=== PATIENT | male | born 1990 | race Caucasian/White ===

== ENCOUNTER → 2018-01-03 07:59 | Outpatient (CLI) | payer OTHER, SELFPAY ==
--- NOTE | 2018-01-03 08:02 | MR_ITS ---
MR knee LT wo con HISTORY: ITS.REASON: PAIN IN LEFT KNEE, SWELLING OF JOINT, prior injury ORDERING PHYSICIAN: Gary Monroe MD PATIENT AGE: 27 years Comparison: 12/02/2017 TECHNIQUE: Standard multiplanar multiecho sequences are performed without contrast. FINDINGS: The cruciate ligaments, collateral ligaments, patellar tendon, and quadriceps tendon appear intact. There is disruption of the subcutaneous fat in the suprapatellar region with a fluid collection in the suprapatellar area at the area of fat disruption and dissecting inferiorly superficial to the patella and quadriceps muscle measuring 3.4 x 2.2 x 3.5 cm extending from the subcutaneous region superficially to the deep subcutaneous region along the anterior surface of the quadriceps tendon consistent with posttraumatic seroma. The quadriceps tendon does appear intact. No evidence of meniscal tear. No bone bruise apparent. The patellar cartilage is well preserved. There is a small knee joint effusion. No fracture or dislocation. IMPRESSION: 1. No internal derangement of the knee. 2. Posttraumatic seroma within the subcutaneous tissues of the suprapatellar region 3. Small knee joint effusion
== END ==
PROVIDERS: PCP Family Medicine; Visit Provider Family Medicine
DX: M25.562 Pain in left knee (principal); M25.462 Effusion, left knee
CPT/HCPCS: 73721

== ENCOUNTER → 2018-02-03 08:43 | Outpatient (CLI) | payer OTHER, SELFPAY ==
--- NOTE | 2018-02-03 08:53 | XR_ITS ---
XR knee LT 4V HISTORY: Left knee pain ITS.REASON: four views weightbearing ORDERING PHYSICIAN: Dylon Frye MD PATIENT AGE: 27 years COMPARISON: None FINDINGS: There is patella lizzie. No patellar subluxation evident on the sunrise view. No other significant anomalies are evident aside from a small bone island in the distal femur medially. IMPRESSION: Patella lizzie otherwise negative left knee
== END ==
PROVIDERS: PCP Family Medicine; Visit Provider Orthopaedic Surgery
DX: M25.562 Pain in left knee (principal)
CPT/HCPCS: 73564

== ENCOUNTER → 2020-01-24 09:40 | Outpatient (CLI) | payer OTHER, SELFPAY ==
[2020-01-24 19:47] LABS: Covid-19 Nasal PCR Sendout Lex NOT DETECTED
== END ==
PROVIDERS: PCP Family Medicine; Visit Provider Family Medicine
DX: Z03.818 Encounter for observation for suspected exposure to other biological agents ruled out (principal)
CPT/HCPCS: U0004

== ENCOUNTER 2020-03-04 09:57 | Emergency (ER) | payer OTHER, SELFPAY ==
[2020-03-04 10:26] VITALS: BP 151/88; PULSE 84; RESP 19; TEMP 36.6; O2SAT 98; BMI 36.5
--- NOTE | 2020-03-04 10:35 | HMH.EDUTC ---
[facility] [place] Clinical Impression: Exposure to COVID-19 virus Disposition: Home, Self-Care Condition on Discharge: Good Instructions: Preventing the Spread of Coronavirus Discharge Instructions, How to Avoid a Cold or Flu, Common Cold Additional Instructions: *Monitor Temp, Over the counter Motrin or Tylenol as directed/as needed Tylenol every 4 hours and Motrin every 6 hours (as long as your family doctor has told you that you can take it) for fever or pain. and straight to ER if unable to lower temp less than 101.0 after medication given *Warm salt water gargles may help to soothe the throat *Throat Lozenges *Warm fluids like tea with honey may help to soothe the throat *Sleep elevated *Humidifier/Vaporizer *Flonase 2 sprays in each nostril daily but be aware that it may take 2-3 days before you notice improvement *Bromfed may cause drowsiness. Know how it effects you (your child) before driving, caring for small child, or sending your child to school. Not other antihistamines/allergy medications while taking bromfed Follow up IMMEDIATELY for new or worsening symptoms or no Noticeable improvement over the next 48-72 hours. 911 for difficulty breathing or swallowing You were tested for today for COVID19 your test result should be back in the next 24-48 hours, you may call to the [facility] to see if your test results are back in the next 48 hours [phone] [facility] hours are 9am-9pm You was given a handout with instructions for Self Quarantine and Self isolation for while you wait on test results and what to do if they are positive If you are positive the Health Dept will be contacting you also Prescriptions: Brompheniramine/Pseudoephed/Dm [Bromfed Dm Cough Syrup] 5 - 10 ml PO Q46H PRN #150 ml PRN Reason: Cough Prescription Printed Fluticasone Propionate [Flonase 50mcg nasal spray 16gm] 1 spr NS DAILY #1 bottle Prescription Printed Referrals: Gary Monroe MD [Primary Care Provider] - As needed Time of Disposition: 10:39 Medical Decision Making - Jaspreet Inquiry Pt receiving controlled substance: No Jaspreet was queried for this patient: No Vital Signs: 03/04/20 10:26 Temperature 97.8 F Temperature Source Oral Pulse Rate [Left] 84 Respiratory Rate 19 Blood Pressure [Right Arm] 151/88 H Blood Pressure Mean [Right Arm] 109 Blood Pressure Source [Right Arm] Automatic Cuff Blood Pressure Position [Right Arm] Sitting 02 Sat by Pulse Oximetry 98 Oxygen Delivery Method Room Air Orders (Tests/Meds): ORDERS Category Date Time Status Covid-19 Nasal PCR Sendout [facility] 03/04/20 10:03 Ordered [facility] [place] - General Stated complaint: Cough, weakness, body aches Time Seen by Provider: 03/04/20 10:35 Mode of Arrival: Ambulatory Source of Information: Patient Limitations: No Limitations Description of Symptoms (Recalled from Triage Doc. by RN): Covid test symptomatic-loss of taste and smell, cough, runny nose HEENT Symptoms (Recalled from RN notes): Yes Resp Symptoms (Recalled from RN notes): Yes Skin Symptoms (Recalled from RN notes): No MS Symptoms (Recalled from RN notes): No Functional Status (Recalled from RN notes): wnl - History of Present Illness Provider Complaint: Patient states that he has been having cough, runny nose and recently loss his sense of taste and smell State that he was recently around several people that has sense tested positive for COVID - Related Data Previous Rx's Medication Instructions Recorded Brompheniramine/Pseudoephed/Dm 5 - 10 ml PO Q46H PRN #150 ml 03/04/20 [Bromfed Dm Cough Syrup] Fluticasone Propionate [Flonase 1 spr NS DAILY #1 bottle 03/04/20 50mcg nasal spray 16gm] Allergies Allergy/AdvReac Type Severity Reaction Status Date / Time Penicillins [PENICILLINS] Allergy Unknown Verified 03/04/20 10:32 - Worker's Comp Is this a Worker's Comp case?: No Is this an H Worker's Comp?: No Is this a [place] Worker's Comp?: No [facility] History
[2020-03-04 11:01] VITALS: BP 151/88; PULSE 84; RESP 19; TEMP 36.6; O2SAT 98
[2020-03-05 12:40] LABS: Covid-19 Nasal PCR Sendout Lex Positive
== END 2020-03-04 11:01 | disposition home or self-care (01) ==
PROVIDERS: Emergency Provider Nurse Practitioner; PCP Family Medicine
DX: U07.1 COVID-19 (principal)
CPT/HCPCS: 99201; U0004

== ENCOUNTER → 2020-05-22 11:03 | Outpatient (CLI) | payer OTHER, SELFPAY ==
[2020-05-22 12:47] LABS: Coronavirus 19 IgG Antibody Positive (Negative); Coronavirus 19 IgM Antibody Negative (Negative)
== END ==
PROVIDERS: Visit Provider Urology
DX: Z01.818 Encounter for other preprocedural examination (principal); Z20.822 Contact with and (suspected) exposure to COVID-19; Z30.2 Encounter for sterilization
CPT/HCPCS: 36415; 86328

== ENCOUNTER 2020-05-24 07:25 | Day surgery (SDC) | payer OTHER, SELFPAY ==
[2020-05-21 10:40] VITALS: BMI 36.5
[2020-05-24 07:39] VITALS: BP 139/98; PULSE 90; RESP 18; TEMP 36.7; O2SAT 98
--- NOTE | 2020-05-24 08:56 | P.PN_ITS ---
[facility] [place] Anesthesia Checklist - Structural Data Admitted From: Home Planned Operative Procedure/s: vasectomy Consent for Planned Operative Procedure(s) Verified: Yes - Additional verifications Anesthesia Reactions: No Hx Blood Transfusions: No Blood Transfusion Reaction: No - Airway Assessment C-Spine Mobility Assessed: Yes TMJ Mobility Assessed: Yes Dentition: Good Dentition - Neurological Assessment Level of Consciousness: Awake, Alert, Appropriate - Anesthesia Plan Anesthesia Risk discussed: Yes Anesthesia Plan: Verified ASA Class: II Anesthesia Type: Local & MAC [facility] [place] History I have reviewed the patient's past medical history: Yes Medical History: Denies:: Cancer, Diabetes Mellitus Type 1, Diabetes Mellitus Type 2, Internal Pacemaker, MRSA, Seizures *Have you ever received a pneumonia vaccine?: No *Have you received a flu vaccine this season?: No Other Medical History: Denies: Blood Transfusion Reaction Anesthesia experience/problems:: none Other Surgeries: Yes: No Previous Surgery. No: Pacemaker Amputation: No Fractures: No - *Social History Last grade of school completed: 9th or 10th Smoking Status: Never smoker Alcohol Intake: current Alcohol Intake Frequency:: 3 or more drinks per day Substance Use Type: denies use *Occupational Status:: employed Housing: house Household Members: family *Travel in the last 8 weeks: None Family Hx:: Cancer, Coronary Artery Disease, Diabetes, Hypertension
[2020-05-24 10:15] VITALS: BP 133/85; PULSE 94; RESP 18; TEMP 36.6; O2SAT 97
[2020-05-24 10:30] VITALS: BP 135/86; PULSE 91; RESP 18; TEMP 36.6; O2SAT 97
--- NOTE | 2020-05-24 10:30 | P.OP_ITS ---
Date of procedure: 05/24/20 Pre-op Diagnosis:: Sterilization Post-op Diagnosis:: Sterilization Procedure performed:: Vasectomy Surgeon:: Salas Shetty MD CIGARETTE PACKER:: Gonzalo Miller Anesthesia: MAC Estimated blood loss (mL): 2 Clinical Note:: 30-year-old white male presents today for vasectomy. Previous consultation has been performed in the office and we went over the operative procedure, complications and postoperative course in the preoperative room this morning. Operative findings:: Scrotal exam reveals normal size and shape testicles. No evidence of scrotal or testicular masses. Operative note:: Patient taken to the operating room after informed consent was obtained. He was placed on the operating table in the supine position and monitored anesthesia care administered. He was prepped and draped in the standard surgical fashion. Scrotal and testicular examination were within normal limits. The left vas was grasped and brought up to the midline raphae. Local anesthetic placed under the skin in the midline raphae and around the vas. Incision was then made in the midline raphae and the vas was grasped with a tenaculum and brought up through the incision. The basal sheath was then incised and the vas proper was brought through the surrounding tissue. 1 Hemoclip was placed distally and 2 proximally. A 1 cm segment was excised. Hemostasis achieved of the surrounding tissue and the vas was dropped back into the left hemiscrotum. The right vas was then grasped and brought up through the same midline incision. Local anesthetic was placed around the right vas and the identical procedure was performed as on the left side. Hemostasis achieved and the vas dropped back int o the hemiscrotum. A little bleeding was encountered and a [id number] was placed on the bleeding tissue and start back into the hemiscrotum. The skin was then closed with a horizontal mattress 2-0 chromic. Compression dressing and jockstrap applied. 2 cc of blood loss. Patient tolerated procedure well no complications. Condition: stable Disposition: same day Specimens:: Vas segments were removed but not sent to pathology Complications:: None
[2020-05-24 10:45] VITALS: BP 138/99; PULSE 85; RESP 18; TEMP 36.6; O2SAT 100
== END 2020-05-24 10:45 | disposition home or self-care (01) ==
LOC: OR 07:27
PROVIDERS: PCP Family Medicine; Visit Provider Urology
PROC: (CPT 55250; principal; 2020-05-24 09:00)
DX: Z30.2 Encounter for sterilization (principal); Z88.0 Allergy status to penicillin
CPT/HCPCS: 55250

== ENCOUNTER 2021-07-16 06:47 | Emergency (ER) | payer OTHER, SELFPAY ==
[2021-07-16 06:48] VITALS: BP 139/107; PULSE 102; RESP 18; TEMP 37.2; O2SAT 99; BMI 34.9
--- NOTE | 2021-07-16 07:29 | PC.NURSE ---
wound covered with a non-adhearent pad and tegaderm
--- NOTE | 2021-07-16 07:39 | HMH.EDWNDL ---
ED Disposition Clinical Impression: Laceration of forearm Qualifiers: Encounter type: initial encounter Laterality: left Qualified Code(s): S51.812A - Laceration without foreign body of left forearm, initial encounter Disposition: Home, Self-Care Condition on Discharge: Good Instructions: DI for Laceration Repair Additional Instructions: sutures out 10 days and recheck if needed Referrals: Gary Monroe MD [Primary Care Provider] - - Critical Care Critical Care Time: No Attestation: On 07/16/21, the high probability of a clinically significant, sudden or life threatening deterioration of the following system(s) required my full and direct attention, intervention and personal management. The time I documented below is in addition to time spent performing reported procedures but includes the following listed in this critical care notation. Medical Decision Making - Medical Records Medical records reviewed: Yes: I reviewed the patient's medical records. - Jaspreet Inquiry Pt receiving controlled substance: No Vital Signs: 07/16/21 06:48 Temperature 99.0 F Temperature Source Oral Pulse Rate [Right] 102 H Respiratory Rate 18 Blood Pressure [Right Arm] 139/107 H Blood Pressure Mean [Right Arm] 117 Blood Pressure Source [Right Arm] Automatic Cuff 02 Sat by Pulse Oximetry 99 Oxygen Delivery Method Room Air Orders (Tests/Meds): ED MEDICATIONS Generic Name Dose Route Start Last Admin Trade Name Freq PRN Reason Stop Dose Admin Lidocaine HCl 10 ml 07/16/21 07:38 Lidocaine 1% 10ml Mdv SQ 07/16/21 07:39 ONCE ONE Discontinued Medications Generic Name Dose Route Start Last Admin Trade Name Freq PRN Reason Stop Dose Admin Tetanus/Reduced Diphtheria/Acell Pertussis 0.5 ml 07/16/21 07:07 07/16/21 07:26 Tet/Diphth/Pert-Adult 0.5ml Syringe IM 07/16/21 07:08 0.5 ml .ONCE ONE Administration Medical Decision Narrative: workman comp form completed after repair Wound/Laceration HPI - General Chief Complaint: Wound/Laceration Stated Complaint: WC left arm cut at work 0615 Time Seen by Provider: 07/16/21 07:00 Mode of Arrival: Family Vehicle Source of Information: Patient, Medical Record Limitations: No Limitations Description of Symptoms (Recalled from ER Triage Doc. by RN): Ptc/o L forearm small lac that occured @ work @ 0630 this am. He works @ [employer] and cut his arm when he accidently hit it on a piece of metal. Unsure when he has had a tetanus last. - History of Present Illness HPI narrative: lac lt forarm at work this am Onset (ago): hour(s) Extremity Location: Left: forearm Place: work Patient tetanus UTD: No Context: accidental Associated symptoms: none - Related Data Home Medications Medication Instructions Recorded Confirmed ascorbic acid (vitamin C) 500 mg 1 tab PO DAILY 04/16/20 06/11/20 capsule biotin 5,000 mcg sublingual tablet 5,000 mcg SUBLINGUAL DAILY 04/16/20 06/11/20 cholecalciferol (vitamin D3) 125 125 mcg PO DAILY 04/16/20 06/11/20 mcg (5,000 unit) capsule loratadine 10 mg disintegrating 10 mg PO DAILY 04/16/20 06/11/20 tablet mecobalamin (vitamin B12) 1,000 1,000 mcg SUBLINGUAL DAILY 04/16/20 06/11/20 mcg disintegrating tablet,sublingual Previous Rx's Medication Instructions Recorded Hydrocod/Acet 5/325 mg [[place] 1 tab PO Q6HP PRN #7 tab 05/24/20 5/325mg tablet] Allergies Allergy/AdvReac Type Severity Reaction Status Date / Time Penicillins [PENICILLINS] Allergy Unknown Verified 06/11/20 08:59 [facility] History - Hepatitis A Screen Drug use history?: No High risk sexual behaviors?: No History of sexually transmitted infection?: No Currently employed?: No Childcare worker?: No Do you have indoor plumbing?: Yes Do you have electricity?: Yes Attestation statement:: This patient has been screened for Hepatitis A risk factors. I have reviewed the patient's past medical history: Yes Medical
[2021-07-16 07:52] VITALS: BP 143/90; PULSE 87; RESP 18; TEMP 37.2; O2SAT 99
== END 2021-07-16 07:52 | disposition home or self-care (01) ==
PROVIDERS: Emergency Provider Emergency Medicine; PCP Family Medicine
DX: S51.812A Laceration without foreign body of left forearm, initial encounter (principal); Z23 Encounter for immunization; W26.8XXA Contact with other sharp object(s), not elsewhere classified, initial encounter; Y92.63 Factory as the place of occurrence of the external cause; Y99.0 Civilian activity done for income or pay
CPT/HCPCS: 12002; 90715; 99282

== ENCOUNTER 2021-08-20 09:12 | Emergency (ER) | payer MEDICAID, SELFPAY ==
--- NOTE | 2021-08-20 09:31 | HMH.EDUTC ---
[facility] [place] Dis[place] Clinical Impression: Bronchitis Sinusitis Qualifiers: Sinusitis location: unspecified location Chronicity: acute Recurrence: non-recurrent Qualified Code(s): J01.90 - Acute sinusitis, unspecified Disposition: Home, Self-Care Condition on Discharge: Good Instructions: DI for Sinusitis, DI for Acute Bronchitis Additional Instructions: Drink plenty of fluids. Take tylenol or ibuprofen for pain or fever. Take the medications as directed. Follow up with your regular doctor. GO TO THE ER FOR ANY WORSENING SYMPTOMS Prescriptions: Benzonatate [Benzonatate 100mg cap] 100 mg PO TIDP PRN #30 cap PRN Reason: Cough Transmission Status: Received by [email or web address] methylPREDNISolone [Medrol] 4 mg PO DIRECTED 6 Days #21 packet Transmission Status: Received by [email or web address] Azithromycin [Z-Mikhail 250mg Tab*] 250 mg PO UD DOSE PK #6 tab Transmission Status: Received by [facility] Cetirizine HCl [Zyrtec] 10 mg PO DAILY 30 Days #30 cap Transmission Status: Received by [facility] Referrals: Al Cantu MD [Primary Care Provider] - Medical Decision Making - Medical Records Medical records reviewed: No: I reviewed the patient's medical records. - Jaspreet Inquiry Pt receiving controlled substance: No Vital Signs: 08/20/21 09:35 08/20/21 09:44 Temperature 99.0 F 99.0 F Temperature Source Oral Pulse Rate 96 H Pulse Rate [Left Radial] 96 H Respiratory Rate 19 19 Blood Pressure 142/99 H Blood Pressure [Right Arm] 142/99 H Blood Pressure Mean [Right Arm] 113 02 Sat by Pulse Oximetry 98 [facility] [place] HPI - General Stated complaint: coughing and congestion Time Seen by Provider: 08/20/21 09:31 - History of Present Illness Provider Complaint: He states that for the past 1 week he has had worsening sinus and chest congestion. He usually get a sinus infection and bronchitis every spring and that is what he feels like is happening now. - Related Data Home Medications Medication Instructions Recorded Confirmed ascorbic acid (vitamin C) 500 mg 1 tab PO DAILY 04/16/20 06/11/20 capsule biotin 5,000 mcg sublingual tablet 5,000 mcg SUBLINGUAL DAILY 04/16/20 06/11/20 cholecalciferol (vitamin D3) 125 125 mcg PO DAILY 04/16/20 06/11/20 mcg (5,000 unit) capsule loratadine 10 mg disintegrating 10 mg PO DAILY 04/16/20 06/11/20 tablet mecobalamin (vitamin B12) 1,000 1,000 mcg SUBLINGUAL DAILY 04/16/20 06/11/20 mcg disintegrating tablet,sublingual Previous Rx's Medication Instructions Recorded Hydrocod/Acet 5/325 mg [[place] 1 tab PO Q6HP PRN #7 tab 05/24/20 5/325mg tablet] Azithromycin [Z-Mikhail 250mg Tab*] 250 mg PO UD DOSE PK #6 tab 08/20/21 Benzonatate [Benzonatate 100mg 100 mg PO TIDP PRN #30 cap 08/20/21 cap] Cetirizine HCl [Zyrtec] 10 mg PO DAILY 30 Days #30 cap 08/20/21 methylPREDNISolone [Medrol] 4 mg PO DIRECTED 6 Days #21 08/20/21 packet Allergies Allergy/AdvReac Type Severity Reaction Status Date / Time Penicillins [PENICILLINS] Allergy Unknown Verified 08/20/21 09:37 [facility] History - Hepatitis A Screen Attestation statement:: This patient has been screened for Hepatitis A risk factors. I have reviewed the patient's past medical history: Yes Medical History: Denies:: Cancer, Diabetes Mellitus Type 1, Diabetes Mellitus Type 2, Internal Pacemaker, MRSA, Seizures Other Medical History: Denies: Blood Transfusion Reaction Other Surgeries: Yes: No Previous Surgery. No: Pacemaker Amputation: No Fractures: No Comment: vasectomy 05/19 - Social History Smoking Status: Never smoker Alcohol Intake: current Alcohol Intake Frequency:: a few times a week Substance Use Type: denies use Occupational Status: employed Housing: house Household Members: family Family Hx:: Cancer, Coronary Artery Disease, Diabetes, Hypertension ROS Obtained: Yes All systems reviewed & no additional complaints - Constitu
[2021-08-20 09:35] VITALS: BP 142/99; PULSE 96; RESP 19; TEMP 37.2; O2SAT 98; BMI 34.9
[2021-08-20 09:44] VITALS: BP 142/99; PULSE 96; RESP 19; TEMP 37.2
[2021-08-20 19:07] LABS: UTC Influenza A Antigen Negative (Negative); UTC Influenza B Antigen Negative (Negative)
== END 2021-08-20 09:46 | disposition home or self-care (01) ==
PROVIDERS: Emergency Provider Nurse Practitioner Family; PCP Emergency Medicine
DX: J20.9 Acute bronchitis, unspecified (principal); J01.90 Acute sinusitis, unspecified
CPT/HCPCS: 87804; 99212; G0463

== ENCOUNTER 2022-05-28 09:10 | Emergency (ER) | payer MEDICAID, SELFPAY ==
[2022-05-28 09:20] VITALS: BP 163/97; PULSE 104; RESP 20; TEMP 36.6; O2SAT 97; BMI 37.1
--- NOTE | 2022-05-28 09:34 | EXP.UTC ---
Discharge Plan Disposition Patient Disposition: Home, Self-Care Condition: Good Prescriptions Prescriptions: New pseudoephedrine HCl 30 mg tablet 30 mg PO Q6HP PRN (Reason: Congestion) Qty: 30 0RF methylprednisolone 4 mg Tablets,Dose Pack 4 mg PO DIRECTED Qty: 21 0RF azithromycin [Zithromax] 250 mg tablet 250 mg PO UD DOSE PK Qty: 6 0RF Rx Instructions: Take two (2) tablets today, then one (1) tablet days #2 thru #5 No Action loratadine [Allergy Relief (loratadine)] 10 mg tablet,disintegrating 10 mg PO DAILY biotin 5,000 mcg tablet, sublingual 5,000 mcg SUBLINGUAL DAILY cholecalciferol (vitamin D3) 125 mcg (5,000 unit) capsule 125 mcg PO DAILY mecobalamin (vitamin B12) 1,000 mcg tablet,disintegrating 1,000 mcg SUBLINGUAL DAILY Rx Instructions: place tablet under tongue and allow to dissolve for at least30 secs before swallowing ascorbic acid (vitamin C) 500 mg capsule 1 tab PO DAILY hydrocodone-acetaminophen 1 TAB tablet 1 tab PO Q6HP PRN (Reason: Moderate To Severe Pain) Qty: 7 0RF cetirizine 10 MG capsule 10 mg PO DAILY 30 Days Qty: 30 5RF Referrals Follow up/Referrals: Provider,Referral, MD [Primary Care Provider] - See instructions Activity Restrictions/Add. Instructions Additional Instructions/Restrictions: Drink plenty of fluids. Take tylenol or ibuprofen for pain or fever. Take the medications as directed. Follow up with your regular doctor. GO TO THE ER FOR ANY WORSENING SYMPTOMS Clinical Impressions Clinical Impression: Otitis media, Sinusitis Stand Alone Forms Stand Alone Forms: Work/School Release Instructions Patient Instructions: Sinusitis, Middle Ear Infection Discharge ED Provider: Andrey Duong [facility] [place] General Stated complaint: RT ear pain Mode of Arrival: Ambulatory Source of Information: Patient Limitations: No Limitations Time Seen by Provider: 05/28/22 09:34 Description of Symptoms (Recalled from Triage Doc. by RN): right ear pain, dizzy HEENT Symptoms (Recalled from RN notes): Yes Resp Symptoms (Recalled from RN notes): No Skin Symptoms (Recalled from RN notes): No MS Symptoms (Recalled from RN notes): No Functional Status (Recalled from RN notes): n/a History of Present Illness Provider Complaint: He states that for the past 3 days he has had worsening bilateral ear pain. Related Data Home Medications Medication Instructions Recorded Confirmed ascorbic acid (vitamin C) 500 mg 1 tab PO DAILY Supplement 04/16/20 06/11/20 capsule biotin 5,000 mcg sublingual tablet 5,000 mcg sublingual DAILY 04/16/20 06/11/20 Supplement cholecalciferol (vitamin D3) 125 125 mcg PO DAILY Supplement 04/16/20 06/11/20 mcg (5,000 unit) capsule loratadine 10 mg disintegrating 10 mg PO DAILY allergies 04/16/20 06/11/20 tablet (Allergy Relief (loratadine)) mecobalamin (vitamin B12) 1,000 1,000 mcg sublingual DAILY 04/16/20 06/11/20 mcg disintegrating Supplement tablet,sublingual Previous Rx's Medication Instructions Recorded hydrocodone 5 mg-acetaminophen 325 1 tab PO Q6HP PRN Moderate To 05/24/20 mg tablet Severe Pain #7 tabs cetirizine 10 mg capsule 10 mg PO DAILY 30 days #30 caps 08/20/21 azithromycin 250 mg tablet 250 mg PO UD DOSE PK #6 tabs 05/28/22 (Zithromax) methylprednisolone 4 mg tablets in 4 mg PO DIRECTED #21 tabs 05/28/22 a dose pack pseudoephedrine HCl 30 mg tablet 30 mg PO Q6HP PRN Congestion #30 05/28/22 tabs Allergies Allergy/AdvReac Type Severity Reaction Status Date / Time Penicillins [PENICILLINS] Allergy Unknown Verified 05/28/22 09:29 Worker's Comp Is this a Worker's Comp case?: No [facility] Disclaimer: The information contained in this section may have been updated after the patient was seen, as this information can be updated by other users. Social History Smoking Status: Never smok
[2022-05-28 10:16] VITALS: BP 163/97; PULSE 104; RESP 20; TEMP 36.6; O2SAT 97
== END 2022-05-28 10:16 | disposition home or self-care (01) ==
PROVIDERS: Emergency Provider Nurse Practitioner Family
DX: H66.90 Otitis media, unspecified, unspecified ear (principal); J32.9 Chronic sinusitis, unspecified
CPT/HCPCS: 99212; 99213; G0463

== ENCOUNTER 2023-01-23 09:02 | Emergency (ER) | payer OTHER, SELFPAY ==
[2023-01-23 09:02] VITALS: BP 139/86; PULSE 112; RESP 18; TEMP 37; O2SAT 97; BMI 36.3
--- NOTE | 2023-01-23 09:37 | EXP.UTC ---
Discharge Plan Disposition Patient Disposition: Home, Self-Care Condition: Good Prescriptions Prescriptions: New clindamycin HCl 300 mg capsule 300 mg PO TID 10 Days Qty: 30 0RF No Action loratadine [Allergy Relief (loratadine)] 10 mg tablet,disintegrating 10 mg PO DAILY biotin 5,000 mcg tablet, sublingual 5,000 mcg SUBLINGUAL DAILY cholecalciferol (vitamin D3) 125 mcg (5,000 unit) capsule 125 mcg PO DAILY mecobalamin (vitamin B12) 1,000 mcg tablet,disintegrating 1,000 mcg SUBLINGUAL DAILY Rx Instructions: place tablet under tongue and allow to dissolve for at least30 secs before swallowing ascorbic acid (vitamin C) 500 mg capsule 1 tab PO DAILY cetirizine 10 MG capsule 10 mg PO DAILY 30 Days Qty: 30 5RF Referrals Follow up/Referrals: Adelina Rollins MD [Primary Care Provider] - See instructions Activity Restrictions/Add. Instructions Additional Instructions/Restrictions: call dentist wednesday for appointment Clinical Impressions Clinical Impression: Dental abscess Instructions Patient Instructions: Tooth Abscess [facility] [facility] [place] H[place] General Stated complaint: sore throat, swollen gums Mode of Arrival: Ambulatory Source of Information: Patient Limitations: No Limitations Time Seen by Provider: 01/23/23 09:37 Description of Symptoms (Recalled from Triage Doc. by RN): Gums are swollen, throat hurts, and nausea HEENT Symptoms (Recalled from RN notes): Yes Resp Symptoms (Recalled from RN notes): No Skin Symptoms (Recalled from RN notes): No MS Symptoms (Recalled from RN notes): No Functional Status (Recalled from RN notes): n/a History of Present Illness Provider Complaint: 35 yr old male presents for swollen sore gum on upper top, sore throat and nausea Related Data Home Medications Medication Instructions Recorded Confirmed ascorbic acid (vitamin C) 500 mg 1 tab PO DAILY Supplement 04/16/20 06/11/20 capsule biotin 5,000 mcg sublingual tablet 5,000 mcg sublingual DAILY 04/16/20 06/11/20 Supplement cholecalciferol (vitamin D3) 125 125 mcg PO DAILY Supplement 04/16/20 06/11/20 mcg (5,000 unit) capsule loratadine 10 mg disintegrating 10 mg PO DAILY allergies 04/16/20 06/11/20 tablet (Allergy Relief (loratadine)) mecobalamin (vitamin B12) 1,000 1,000 mcg sublingual DAILY 04/16/20 06/11/20 mcg disintegrating Supplement tablet,sublingual Previous Rx's Medication Instructions Recorded cetirizine 10 mg capsule 10 mg PO DAILY 30 days #30 caps 08/20/21 clindamycin HCl 300 mg capsule 300 mg PO TID 10 days #30 caps 01/23/23 Allergies Allergy/AdvReac Type Severity Reaction Status Date / Time Penicillins [PENICILLINS] Allergy Unknown Verified 01/23/23 09:34 Worker's Comp Is this a Worker's Comp case?: No [facility] Disclaimer: The information contained in this section may have been updated after the patient was seen, as this information can be updated by other users. Social History , SALES ENGINEER) Smoking Status: Never smoker second hand exposure: Yes alcohol intake: current substance use type: denies use current occupational status: employed Travel in the last 8 weeks: None household members: family housing: house current occupation: journeyman pipe welder current occupational exposures/hazards: Yes caffeine: Yes ROS Obtained: Yes All systems reviewed & no additional complaints except as documented Constitutional Constitutional: Reports system reviewed and no additional complaints, except as documented and Reports as per HPI Eyes Eyes: Reports system reviewed and no additional complaints, except as documented ENT Ears, Nose, Mouth, and Throat: Reports system reviewed and no additional complaints, except as documented, Reports as per HPI, Reports dental pain and Reports sore throat Cardiovascular Cardiovascular: Reports system reviewed and n
[2023-01-23 09:51] LABS: UTC Strep Screen (Rapid) Negative (Negative)
[2023-01-23 09:57] VITALS: BP 139/86; PULSE 112; RESP 18; TEMP 37; O2SAT 97
== END 2023-01-23 09:57 | disposition home or self-care (01) ==
PROVIDERS: Emergency Provider Nurse Practitioner Family; PCP Family Medicine
DX: K04.7 Periapical abscess without sinus (principal); R11.0 Nausea
CPT/HCPCS: 87880; 99212; 99214; G0463

== ENCOUNTER 2023-03-03 13:09 | Emergency (ER) | payer OTHER, SELFPAY ==
[2023-03-03 13:50] VITALS: BP 174/90; PULSE 92; RESP 18; TEMP 36.7; O2SAT 98; BMI 33.4
--- NOTE | 2023-03-03 13:58 | EXP.UTC ---
Discharge Plan Disposition Patient Disposition: Home, Self-Care Condition: Good Prescriptions Prescriptions: New azithromycin [Zithromax] 250 mg tablet 250 mg PO UD DOSE PK Qty: 6 0RF Rx Instructions: Take two (2) tablets today, then one (1) tablet days #2 thru #5 methylprednisolone 4 mg Tablets,Dose Pack 4 mg PO DIRECTED Qty: 21 0RF [id number] [Bromfed DM] 2-30-10 mg/5 mL Syrup 5 ml PO Q6H PRN (Reason: Cough) Qty: 240 0RF guaifenesin [Mucinex] 600 mg tablet extended release 12hr 600 - 1,200 mg PO BIDP PRN (Reason: Congestion) Qty: 30 0RF No Action loratadine [Allergy Relief (loratadine)] 10 mg tablet,disintegrating 10 mg PO DAILY biotin 5,000 mcg tablet, sublingual 5,000 mcg SUBLINGUAL DAILY cholecalciferol (vitamin D3) 125 mcg (5,000 unit) capsule 125 mcg PO DAILY mecobalamin (vitamin B12) 1,000 mcg tablet,disintegrating 1,000 mcg SUBLINGUAL DAILY Rx Instructions: place tablet under tongue and allow to dissolve for at least30 secs before swallowing ascorbic acid (vitamin C) 500 mg capsule 1 tab PO DAILY cetirizine 10 MG capsule 10 mg PO DAILY 30 Days Qty: 30 5RF Referrals Follow up/Referrals: Provider,Referral, MD [Primary Care Provider] - See instructions Activity Restrictions/Add. Instructions Additional Instructions/Restrictions: Drink plenty of fluids. Take tylenol or ibuprofen for pain or fever. Take the medications as directed. Follow up with your regular doctor. GO TO THE ER FOR ANY WORSENING SYMPTOMS Clinical Impressions Clinical Impression: Sinusitis, Acute viral syndrome Stand Alone Forms Stand Alone Forms: Work/School Release Instructions Patient Instructions: Sinusitis, DI for Sinusitis, Coronavirus Disease 2019, Preventing the Spread of Coronavirus Discharge Instructions Discharge ED Provider: Andrey Duong [facility] [place] HPI General Stated complaint: congestion, losing taste, runny nose, SOA Time Seen by Provider: 03/03/23 13:58 History of Present Illness Provider Complaint: He states that for the past 2 days he has had worsening sinus congestion, sore throat, nonproductive cough, fever/chills/body aches. Since this morning he has not been able to taste anything. He denies shortness of breath. Related Data Home Medications Medication Instructions Recorded Confirmed ascorbic acid (vitamin C) 500 mg 1 tab PO DAILY Supplement 04/16/20 06/11/20 capsule biotin 5,000 mcg sublingual tablet 5,000 mcg sublingual DAILY 04/16/20 06/11/20 Supplement cholecalciferol (vitamin D3) 125 125 mcg PO DAILY Supplement 04/16/20 06/11/20 mcg (5,000 unit) capsule loratadine 10 mg disintegrating 10 mg PO DAILY allergies 04/16/20 06/11/20 tablet (Allergy Relief (loratadine)) mecobalamin (vitamin B12) 1,000 1,000 mcg sublingual DAILY 04/16/20 06/11/20 mcg disintegrating Supplement tablet,sublingual Previous Rx's Medication Instructions Recorded cetirizine 10 mg capsule 10 mg PO DAILY 30 days #30 caps 08/20/21 azithromycin 250 mg tablet 250 mg PO UD DOSE PK #6 tabs 03/03/23 (Zithromax) [id number] 5 ml PO Q6H PRN Cough #240 mL 03/03/23 2 mg-30 mg-10 mg/5 mL oral syrup (Bromfed DM) guaifenesin 600 mg tablet, 600 - 1,200 mg PO BIDP PRN 03/03/23 extended release 12 hr (Mucinex) Congestion #30 tabs methylprednisolone 4 mg tablets in 4 mg PO DIRECTED #21 tabs 03/03/23 a dose pack Allergies Allergy/AdvReac Type Severity Reaction Status Date / Time Penicillins [PENICILLINS] Allergy Unknown Verified 03/03/23 14:01 [facility] Disclaimer: The information contained in this section may have been updated after the patient was seen, as this information can be updated by other users. Social History Smoking Status: Never smoker second hand exposure: Yes alcohol intake: current substance use type: de
[2023-03-03 14:32] VITALS: BP 174/90; PULSE 92; RESP 18; TEMP 36.7; O2SAT 98
== END 2023-03-03 14:31 | disposition home or self-care (01) ==
PROVIDERS: Emergency Provider Nurse Practitioner Family
DX: J01.90 Acute sinusitis, unspecified (principal); R43.9 Unspecified disturbances of smell and taste; R09.81 Nasal congestion; R07.0 Pain in throat; R05.9 Cough, unspecified; R50.9 Fever, unspecified; M79.18 Myalgia, other site; R06.02 Shortness of breath
CPT/HCPCS: 87635; 99212; 99214; G0463

== ENCOUNTER 2023-03-18 00:24 | Emergency (ER) | payer OTHER, SELFPAY ==
[2023-03-18 00:25] VITALS: BP 153/119; PULSE 102; RESP 15; TEMP 36.8; O2SAT 99; BMI 34.4
--- NOTE | 2023-03-18 00:31 | ECG_ITS ---
APPROVED REPORT Exam: Resting ECG HR:99 bpm ECG Measurements Heart Rate 99 AXES NJ 140 P 68 QRSd 105 QRS 66 QT 342 T 62 QTc 398 Conclusion SINUS RHYTHM NORMAL ECG UNCONFIRMED REPORT Electronically signed by : Gary Avery MD 03/18/2023 19:44:44
--- NOTE | 2023-03-18 00:33 | XR_ITS ---
PROCEDURE INFORMATION: Exam: XR Chest Exam date and time: 03/18/2023 12:38 AM Age: 33 years old Clinical indication: Shortness of breath; Patient HX: SOA since yesterday; Additional info: SOB TECHNIQUE: Imaging protocol: Radiologic exam of the chest. Views: 1 view. COMPARISON: No relevant prior studies available. FINDINGS: Lungs: No evidence of acute pulmonary disease or infiltrates; lung darnell appear clear. Pleural spaces: No evidence of pleural effusion, pneumothorax, or pleural thickening in the visualized pleural spaces. Heart/Mediastinum: No evidence of mediastinal widening or cardiac silhouette enlargement; the mediastinum and heart appear within normal limits for contour and size. Bones/joints: No evidence of acute osseous abnormalities within the visualized portions of the thoracic spine and ribs. Osseous structures appear appropriate for patient age. IMPRESSION: Negative study. No acute cardiopulmonary abnormalities identified.
[2023-03-18 00:42] LABS: Basophils # 0.1 K/mm3 (0-0.2); Basophils % 0.9 % (0.1-2.0); Eosinophils # 0.1 K/mm3 (0.0-0.4); Eosinophils % 1.6 % (0.1-12.0); Hematocrit 48.4 % (42.0-52.0); Hemoglobin 16.3 g/dL (14.1-18.0); Lymphocytes # 1.9 K/mm3 (0.7-4.5); Lymphocytes % 36.9 % (10-50); Mean Corpuscular HGB Conc 33.6 g/dL (31.8-35.4); Mean Corpuscular Hemoglobin 31.1 pg (27.0-31.2); Mean Corpuscular Volume 92.6 fl (80-94); Mean Platelet Volume 8.5 fl (7.4-10.4); Monocytes # 0.5 K/mm3 (0.1-1.0); Monocytes % 9.1 % (1.7-9.3); Neutrophils # 2.7 K/mm3 (1.8-7.8); Neutrophils % 51.5 % (37.0-80.0); Platelet Count 225 K/mm3 (142-424); Red Blood Count 5.23 M/mm3 (4.60-6.20); Red Cell Distribution Width 13.5 % (11.5-17.5); White Blood Count 5.2 K/mm3 (4.8-10.8)
[2023-03-18 00:45] LABS: Coronavirus 19, PCR Not Detected (NotDetected); Influenza B, PCR Not Detected (NotDetected)
--- NOTE | 2023-03-18 00:48 | HMH.EDGENADL ---
Discharge Plan Disposition Patient Disposition: Home, Self-Care Prescriptions Prescriptions: No Action loratadine [Allergy Relief (loratadine)] 10 mg tablet,disintegrating 10 mg PO DAILY biotin 5,000 mcg tablet, sublingual 5,000 mcg SUBLINGUAL DAILY cholecalciferol (vitamin D3) 125 mcg (5,000 unit) capsule 125 mcg PO DAILY mecobalamin (vitamin B12) 1,000 mcg tablet,disintegrating 1,000 mcg SUBLINGUAL DAILY Rx Instructions: place tablet under tongue and allow to dissolve for at least30 secs before swallowing ascorbic acid (vitamin C) 500 mg capsule 1 tab PO DAILY cetirizine 10 MG capsule 10 mg PO DAILY 30 Days Qty: 30 5RF azithromycin [Zithromax] 250 mg tablet 250 mg PO UD DOSE PK Qty: 6 0RF Rx Instructions: Take two (2) tablets today, then one (1) tablet days #2 thru #5 methylprednisolone 4 mg Tablets,Dose Pack 4 mg PO DIRECTED Qty: 21 0RF [id number]-[id number] [Bromfed DM] 2-30-10 mg/5 mL Syrup 5 ml PO Q6H PRN (Reason: Cough) Qty: 240 0RF guaifenesin [Mucinex] 600 mg tablet extended release 12hr 600 - 1,200 mg PO BIDP PRN (Reason: Congestion) Qty: 30 0RF Referrals Follow up/Referrals: Provider,Referral, MD [Primary Care Provider] - See instructions Activity Restrictions/Add. Instructions Additional Instructions/Restrictions: Please follow-up with your primary care provider. Please return to the emergency department if you develop any new or worsening symptoms or become concerned for your health. Clinical Impressions Clinical Impression: Exertional shortness of breath, Influenza A Discharge ED Provider: Eliu Bliss General Adult HPI General Chief complaint: Chest Pain Stated complaint: SOA, Congestion Time Seen by Provider: 03/18/23 00:27 Mode of Arrival: Ambulatory Source of Information: Patient Limitations: No Limitations Description of Symptoms (Recalled from ER Triage Doc. by RN): Pt presents with CP that started 2 days associated with SOA with exertion. DX with bad sinus infection 2 weeks ago, believes it has gone into his chest. No cardiac or PE hx. Stated he used family nebulizer today and felt better. History of Present Illness HPI narrative: 33-year-old male, previously healthy, presents with shortness of air over the last couple of days. Reports he had a recent sinus infection and thinks it may have traveled down. He denies any fever at home. He denies any productive cough. He denies any cardiac history. Notable risk factors for PE. Never smoker. Related Data Home Medications Medication Instructions Recorded Confirmed ascorbic acid (vitamin C) 500 mg 1 tab PO DAILY Supplement 04/16/20 06/11/20 capsule biotin 5,000 mcg sublingual tablet 5,000 mcg sublingual DAILY 04/16/20 06/11/20 Supplement cholecalciferol (vitamin D3) 125 125 mcg PO DAILY Supplement 04/16/20 06/11/20 mcg (5,000 unit) capsule loratadine 10 mg disintegrating 10 mg PO DAILY allergies 04/16/20 06/11/20 tablet (Allergy Relief (loratadine)) mecobalamin (vitamin B12) 1,000 1,000 mcg sublingual DAILY 04/16/20 06/11/20 mcg disintegrating Supplement tablet,sublingual Previous Rx's Medication Instructions Recorded cetirizine 10 mg capsule 10 mg PO DAILY 30 days #30 caps 08/20/21 azithromycin 250 mg tablet 250 mg PO UD DOSE PK #6 tabs 03/03/23 (Zithromax) anfokmsvtvvnojp-jxbnwgrnrazzkdm-RX 5 ml PO Q6H PRN Cough #240 mL 03/03/23 2 mg-30 mg-10 mg/5 mL oral syrup (Bromfed DM) guaifenesin 600 mg tablet, 600 - 1,200 mg PO BIDP PRN 03/03/23 extended release 12 hr (Mucinex) Congestion #30 tabs methylprednisolone 4 mg tablets in 4 mg PO DIRECTED #21 tabs 03/03/23 a dose pack Allergies Allergy/AdvReac Type Severity Reaction Status Date / Time Penicillins [PENICILLINS] Allergy Unknown Verified 03/03/23 14:01 [facility] Disclaimer: The information contained in this section may have been updated after the patient
[2023-03-18 00:52] LABS: Alanine Aminotransferase 64 U/L (12-78); Albumin Level 4.8 g/dl (3.5-5.0); Albumin/Globulin Ratio 1.4 (1.1-1.8); Alkaline Phosphatase 77 U/L (38-126); Anion Gap 13.8 mEq/L (5-15); Aspartate Amino Transferase 64 U/L (17-59); Bilirubin,Total 0.5 mg/dl (0.2-1.3); Blood Urea Nitrogen 14 mg/dl (9-20); Calcium 8.2 mg/dl (8.4-10.2); Carbon Dioxide 22 mmol/L (22.0-30.0); Chloride 105 mmol/L (98-107); Creatinine Clearance Estimated 148 mL/min (50-200); Estimated Glomerular Filt Rate 86 ml/min (>60); GFR (African American) 104 ML/MIN (>60); Globulin 3.5 g/dL (1.3-3.2); Glucose 113 mg/dl (74-100); Potassium 3.8 mmoL/L (3.5-5.1); Sodium 137 mmol/L (136-145); Total Protein,Serum 8.3 g/dl (6.3-8.2)
[2023-03-18 01:06] LABS: Troponin I < 0.01 ng/ml (0.00-0.034)
[2023-03-18 01:06] LABS: Influenza A, PCR Detected (NotDetected)
[2023-03-18 01:07] LABS: D-Dimer < 0.25 ug/mL (0.0-0.5)
[2023-03-18 01:10] LABS: T4 (Thyroxine) 7.9 ug/dl (5.53-11.0)
[2023-03-18 01:18] VITALS: BP 129/89; PULSE 84; RESP 16; TEMP 36.8; O2SAT 97
== END 2023-03-18 01:19 | disposition home or self-care (01) ==
PROVIDERS: Emergency Provider Emergency Medicine
DX: J10.1 Influenza due to other identified influenza virus with other respiratory manifestations (principal); R06.09 Other forms of dyspnea; R00.0 Tachycardia, unspecified
CPT/HCPCS: 71045; 80053; 84436; 84443; 84484; 85025; 85378; 87636; 93005; 99284

== ENCOUNTER 2023-03-20 08:26 | Emergency (ER) | payer OTHER, SELFPAY ==
[2023-03-20 08:35] VITALS: BP 108/78; PULSE 91; RESP 21; TEMP 36.6; O2SAT 99; BMI 30.7
--- NOTE | 2023-03-20 09:00 | EXP.UTC ---
Discharge Plan Disposition Patient Disposition: Home, Self-Care Condition: Good Prescriptions Prescriptions: New hydroxyzine HCl 25 mg tablet 25 mg PO QID PRN (Reason: anxiety) Qty: 40 0RF No Action loratadine 10 mg Capsule 10 mg PO DAILY Referrals Follow up/Referrals: Provider,Referral, MD [Primary Care Provider] - See instructions Activity Restrictions/Add. Instructions Additional Instructions/Restrictions: Follow up with PCP next week. Clinical Impressions Clinical Impression: Cough in adult patient, Anxiety Instructions Patient Instructions: Cough, DI for Influenza -- Adult, DI for Anxiety -- Adult Discharge ED Provider: Julissa San [facility] General Stated complaint: cough, diarrhea, flu+03/18 chest congestion Mode of Arrival: Ambulatory Source of Information: Patient Limitations: No Limitations Time Seen by Provider: 03/20/23 09:00 Description of Symptoms (Recalled from Triage Doc. by RN): PATIENT C/O COUGH AND CHEST CONGESTION X 2 DAYS. RECENTLY TESTED POSITIVE FOR FLU HEENT Symptoms (Recalled from RN notes): No Resp Symptoms (Recalled from RN notes): Yes Skin Symptoms (Recalled from RN notes): No MS Symptoms (Recalled from RN notes): No Functional Status (Recalled from RN notes): WNL History of Present Illness Provider Complaint: Pt relates that he tested positive for flu a couple days ago and has periods where he feels like he is choking and can't get his breath. He reports that he is unsure if he is having lung issues or anxiety. He reports that he went off his buspar some time ago and knows that he is having a lot of anxiety recently. Related Data Home Medications Medication Instructions Recorded Confirmed loratadine 10 mg capsule 10 mg PO DAILY 03/20/23 03/20/23 Previous Rx's Medication Instructions Recorded hydroxyzine HCl 25 mg tablet 25 mg PO QID PRN anxiety #40 tabs 03/20/23 Allergies Allergy/AdvReac Type Severity Reaction Status Date / Time Penicillins [PENICILLINS] Allergy Unknown Verified 03/03/23 14:01 Worker's Comp Is this a Worker's Comp case?: No [facility] Disclaimer: The information contained in this section may have been updated after the patient was seen, as this information can be updated by other users. Social History Smoking Status: Never smoker second hand exposure: Yes alcohol intake: current substance use type: denies use current occupational status: employed Travel in the last 8 weeks: None household members: family housing: house current occupation: journeyman pipe welder current occupational exposures/hazards: Yes caffeine: Yes ROS Obtained: Yes All systems reviewed & no additional complaints except as documented Constitutional Constitutional: Reports system reviewed and no additional complaints, except as documented and Reports malaise Eyes Eyes: Reports system reviewed and no additional complaints, except as documented ENT Ears, Nose, Mouth, and Throat: Reports system reviewed and no additional complaints, except as documented and Reports sinus pressure Cardiovascular Cardiovascular: Reports system reviewed and no additional complaints, except as documented Respiratory Respiratory: Reports system reviewed and no additional complaints, except as documented, Reports shortness of breath and Reports non-productive cough Gastrointestinal Gastrointestingal: Reports system reviewed and no additional complaints, except as documented Genitourinary Male Genitourinary: Reports system reviewed and no additional complaints, except as documented Musculoskeletal Musculoskeletal: Reports system reviewed and no additional complaints, except as documented Integumentary/Breasts Skin/Breast: Reports system reviewed and no additional complaints, except as documented Neurologic Neurologic: Reports system reviewed and no additional complaints, except as documented Endocrine Endocrine: Reports
[2023-03-20 09:20] VITALS: BP 108/78; PULSE 91; RESP 21; TEMP 36.6; O2SAT 99
== END 2023-03-20 09:24 | disposition home or self-care (01) ==
PROVIDERS: Emergency Provider Nurse Practitioner Family
DX: J10.1 Influenza due to other identified influenza virus with other respiratory manifestations (principal); R06.02 Shortness of breath; R05.9 Cough, unspecified; F41.9 Anxiety disorder, unspecified; R19.7 Diarrhea, unspecified; R09.89 Other specified symptoms and signs involving the circulatory and respiratory systems
CPT/HCPCS: 99212; 99214; G0463

== ENCOUNTER 2023-03-28 16:48 | Emergency (ER) | payer OTHER, SELFPAY ==
--- NOTE | 2023-03-28 17:09 | EXP.UTC ---
Discharge Plan Disposition Patient Disposition: Home, Self-Care Condition: Good Prescriptions Prescriptions: New promethazine-DM 6.25-15 mg/5 mL Syrup 5 ml PO Q6H PRN (Reason: Cough) Qty: 240 0RF albuterol sulfate [Ventolin HFA] 90 mcg/actuation HFA aerosol inhaler 2 puff inhalation Q6H PRN (Reason: shortness of breath or wheezing) Qty: 6.7 0RF cefdinir 300 mg capsule 300 mg PO BID Qty: 20 0RF prednisone 10 mg tablet 10 mg PO DIRECTED 9 Days Qty: 21 0RF Rx Instructions: Take 4 tablets daily for 3 days, then take 2 tablets daily for 3 days, then take 1 tablet daily for 3 days, then stop. No Action hydroxyzine HCl 25 mg tablet 25 mg PO QID PRN (Reason: anxiety) Qty: 40 0RF loratadine 10 mg Capsule 10 mg PO DAILY Referrals Follow up/Referrals: Zak Almonte DO [Primary Care Provider] - See instructions Activity Restrictions/Add. Instructions Additional Instructions/Restrictions: Drink plenty of fluids. Take tylenol or ibuprofen for pain or fever. Take the medications as directed. Follow up with your regular doctor. GO TO THE ER FOR ANY WORSENING SYMPTOMS Clinical Impressions Clinical Impression: Bronchitis, Acute viral syndrome Instructions Patient Instructions: DI for Acute Bronchitis Discharge ED Provider: Andrey Duong [facility] General Stated complaint: cough, heartburn Time Seen by Provider: 03/28/23 17:09 History of Present Illness Provider Complaint: He is back today with worsening productive cough. He states that he has had this cough for the past 1 month. He states that it is getting worse. He denies fever since he had influenza about 2 weeks ago. Related Data Home Medications Medication Instructions Recorded Confirmed loratadine 10 mg capsule 10 mg PO DAILY 03/20/23 03/20/23 Previous Rx's Medication Instructions Recorded hydroxyzine HCl 25 mg tablet 25 mg PO QID PRN anxiety #40 tabs 03/20/23 albuterol sulfate 90 mcg/actuation 2 puff inhalation Q6H PRN 03/28/23 aerosol inhaler (Ventolin HFA) shortness of breath or wheezing #6.7 grams cefdinir 300 mg capsule 300 mg PO BID #20 caps 12/31/23 prednisone 10 mg tablet 10 mg PO DIRECTED 9 days #21 03/28/23 tabs promethazine-DM 6.25 mg-15 mg/5 mL 5 ml PO Q6H PRN Cough #240 mL 03/28/23 oral syrup Allergies Allergy/AdvReac Type Severity Reaction Status Date / Time Penicillins [PENICILLINS] Allergy Unknown Verified 03/28/23 17:40 [facility] Disclaimer: The information contained in this section may have been updated after the patient was seen, as this information can be updated by other users. Social History Smoking Status: Never smoker second hand exposure: Yes alcohol intake: current substance use type: denies use current occupational status: employed Travel in the last 8 weeks: None household members: family housing: house current occupation: body welder current occupational exposures/hazards: Yes caffeine: Yes ROS Obtained: Yes All systems reviewed & no additional complaints except as documented Constitutional Constitutional: Reports poor appetite Eyes Eyes: Reports system reviewed and no additional complaints, except as documented ENT Ears, Nose, Mouth, and Throat: Reports as per HPI Cardiovascular Cardiovascular: Reports system reviewed and no additional complaints, except as documented and Denies chest pain Respiratory Respiratory: Denies shortness of breath, Reports chest congestion, Reports cough, Denies stridor and Denies wheezing Gastrointestinal Gastrointestingal: Reports system reviewed and no additional complaints, except as documented; Denies abdominal pain, diarrhea or vomiting Musculoskeletal Musculoskeletal: Reports system reviewed and no additional complaints, except as documented and Denies arthralgias Integumentary/Breasts Skin/Breast: Reports system reviewed and no additional complaints, except as documented and Denies rash Neurologic Neurologic: Denies paresthesias Allergic/Immunologic Allergic/Immunologic: Denies wheezing Physical Exam General General appearance: alert and in no apparent distress Head Head exam: atraumatic, normocephalic and normal inspection Eye Eye exam: Present normal appearance, PERRL and EOMI ENT ENT exam: Present normal exam, normal oropharynx, mucous membranes moist, TM's normal bilaterally and normal external ear exam Neck Neck exam: Present normal inspection, full ROM and trachea midline; Absent meningismus or lymphadenopathy Chest Chest inspection: Present normal inspection and symmetric chest wall rise; Absent tenderness Respiratory Respiratory exam: Present normal lung sounds bilaterally; Absent respiratory distress Cardiovascular Cardiovascular exam: Present regular rate and normal rhythm; Absent JVD Abdominal Exam Abdominal exam: Present soft and normal bowel sounds; Absent distention, tenderness or guarding Extremities Exam Extremities exam: Present normal inspection, full ROM and normal capillary refill; Absent calf tenderness Back Exam Back exam: Present normal inspection; Absent tenderness Neurological Exam Neurological exam: Present alert and oriented X3 Psychiatric Psychiatric exam: Present normal affect and normal mood Skin Skin exam: Present warm, dry, intact and normal color Lymphatic Lymphatic Findings: no adenopathy Medical Decision Making Medical Records Medical records reviewed: No I reviewed the patient's medical records. Jaspreet Inquiry Pt receiving controlled substance: No Radiology Data #1: Image(s): Chest Image Reviewed: Yes I reviewed the patient's radiology image and Yes I have reviewed radiologist's interpretation Preliminary Findings: Normal/NAD and No Infiltrates Seen PROCEDURE INFORMATION: Exam: XR Chest Exam date and time: 03/28/2023 5:41 PM Age: 33 years old Clinical indication: Cough; Additional info: Cough, congestion TECHNIQUE: Imaging protocol: Radiologic exam of the chest. Views: 2 views. COMPARISON: CR XR CHEST PORTABLE 03/18/2023 12:38 AM FINDINGS: Lungs: Unremarkable. No consolidation. Pleural spaces: Unremarkable. No pleural effusion. No pneumothorax. Heart/Mediastinum: Unremarkable. No cardiomegaly. Bones/joints: Unremarkable. IMPRESSION: No acute findings.
[2023-03-28 17:15] VITALS: PULSE 94; RESP 18; TEMP 36.9; O2SAT 98; BMI 34.2
[2023-03-28 17:27] LABS: UTC Strep Screen (Rapid) Negative (Negative)
--- NOTE | 2023-03-28 17:33 | XR_ITS ---
PROCEDURE INFORMATION: Exam: XR Chest Exam date and time: 03/28/2023 5:41 PM Age: 33 years old Clinical indication: Cough; Additional info: Cough, congestion TECHNIQUE: Imaging protocol: Radiologic exam of the chest. Views: 2 views. COMPARISON: CR XR CHEST PORTABLE 03/18/2023 12:38 AM FINDINGS: Lungs: Unremarkable. No consolidation. Pleural spaces: Unremarkable. No pleural effusion. No pneumothorax. Heart/Mediastinum: Unremarkable. No cardiomegaly. Bones/joints: Unremarkable. IMPRESSION: No acute findings.
[2023-03-28] MEDS: DEXAMETHASONE 4MG/ML 1ML VIAL 8 MG IM (18:14)
[2023-03-28 18:40] LABS: Adenovirus,PCR Not Detected (NotDetected); Coronavirus 19, PCR Not Detected (NotDetected); Coronavirus 229E Not Detected (NotDetected); Coronavirus NL63 Not Detected (NotDetected); Coronavirus OC43 Not Detected (NotDetected); Coronovirus HKU1,PCR Not Detected (NotDetected); Human Metapneumovirus Not Detected (NotDetected); Influenza A, PCR Not Detected (NotDetected); Influenza AH1, 2009 Not Detected (NotDetected); Influenza AH1, PCR Not Detected (NotDetected); Influenza AH3,PCR Not Detected (NotDetected); Influenza B, PCR Not Detected (NotDetected); Parainfluenza 1, PCR Not Detected (NotDetected); Parainfluenza 2, PCR Not Detected (NotDetected); Parainfluenza 3, PCR Not Detected (NotDetected); Parainfluenza 4, PCR Not Detected (NotDetected); Respiratory Syncytial Virus Not Detected (NotDetected); Rhinovirus/Enterovirus Not Detected (NotDetected)
[2023-03-28 18:50] VITALS: BP 170/84; PULSE 94; RESP 18; TEMP 36.3; O2SAT 98
== END 2023-03-28 18:30 | disposition home or self-care (01) ==
PROVIDERS: Emergency Provider Nurse Practitioner Family; PCP Internal Medicine
DX: J20.9 Acute bronchitis, unspecified (principal); B34.9 Viral infection, unspecified; R05.9 Cough, unspecified
CPT/HCPCS: 71046; 87632; 87635; 87880; 96372; 99212; 99214; G0463

== ENCOUNTER 2023-04-13 11:48 | Outpatient (CLI) | payer OTHER, SELFPAY ==
[2023-04-13 11:50] LABS: Coronavirus 19, PCR Not Detected (NotDetected); Influenza A, PCR Not Detected (NotDetected); Influenza B, PCR Not Detected (NotDetected)
[2023-04-13 13:29] LABS: Cholesterol 253 mg/dl (140-200); HDL Cholesterol 63 mg/dl (40-60); Triglycerides 168 mg/dl (30-150); VLDL Cholesterol 34 mg/dL (0-40)
[2023-04-13 13:40] LABS: Direct LDL Cholesterol 142.11 mg/dL (100-129)
[2023-04-13 14:02] LABS: Thyroid Stimulating Hormone 0.92 uIU/mL (0.465-4.68)
[2023-04-13 14:29] LABS: Hemoglobin A1C 5.4 % (4.0-6.0)
== END 2023-04-13 23:59 ==
PROVIDERS: PCP Internal Medicine; Visit Provider Internal Medicine
DX: R06.02 Shortness of breath (principal); Z20.828 Contact with and (suspected) exposure to other viral communicable diseases; R53.83 Other fatigue; Z83.3 Family history of diabetes mellitus; Z79.899 Other long term (current) drug therapy
CPT/HCPCS: 80061; 83036; 84443; 87636

== ENCOUNTER 2023-05-10 22:01 | Outpatient (CLI) | payer OTHER, MEDICAID, SELFPAY ==
[2023-05-10 18:42] LABS: Chol/HDL Ratio 3.5 (1-3.5); Cholesterol 141 mg/dl (140-200); HDL Cholesterol 40 mg/dl (40-60); Triglycerides 236 mg/dl (30-150); VLDL Cholesterol 47 mg/dL (0-40)
[2023-05-10 18:53] LABS: Direct LDL Cholesterol 63.27 mg/dL (100-129)
== END 2023-05-10 23:59 ==
LOC: LAB.DROPOF 22:01
PROVIDERS: PCP Internal Medicine; Visit Provider Internal Medicine
DX: E78.5 Hyperlipidemia, unspecified (principal)
CPT/HCPCS: 80061

== ENCOUNTER 2024-03-10 08:03 | Emergency (ER) | payer BC, SELFPAY ==
--- NOTE | 2024-03-10 08:29 | ED_ITS ---
Discharge Plan Disposition Patient Disposition: Home, Self-Care Condition: Good Prescriptions Prescriptions: New azithromycin [Zithromax] 250 mg tablet 250 mg PO UD DOSE PK Qty: 6 0RF Rx Instructions: Take two (2) tablets today, then one (1) tablet days #2 thru #5 methylprednisolone 4 mg Tablets,Dose Pack 4 mg PO DIRECTED 6 Days Qty: 21 0RF Rx Instructions: Take 1 pack as directed for 6 days ikisqpnovvpogab-haykgoyuy-DI [Bromfed DM] 2-30-10 mg/5 mL Syrup 5 ml PO Q6H PRN (Reason: Cough) Qty: 240 0RF No Action Anoro Ellipta 62.5-25 mcg/actuation blister with device 1 inh inhalation DAILY Qty: 60 2RF buspirone 15 mg tablet 15 mg PO BID 30 Days Qty: 90 2RF atorvastatin 10 mg tablet 10 mg PO DAILY 90 Days Qty: 90 2RF bisoprolol fumarate 5 mg tablet 5 mg PO DAILY Qty: 90 3RF lisinopril 5 mg tablet 5 mg PO DAILY 90 Days Qty: 90 2RF loratadine [Allergy Relief (loratadine)] 10 mg tablet See Rx Instructions .ROUTE .COMPLEX Qty: 90 1RF Dose Instruction: Take 1 tablet by mouth once daily Rx Instructions: Take 1 tablet by mouth once daily Referrals Follow up/Referrals: Zak Almonte DO [Primary Care Provider] - See instructions Activity Restrictions/Add. Instructions Additional Instructions/Restrictions: Drink plenty of fluids. Take tylenol or ibuprofen for pain or fever. Take the medications as directed. Follow up with your regular doctor. GO TO THE ER FOR ANY WORSENING SYMPTOMS Clinical Impressions Clinical Impression: Pharyngitis, Acute viral syndrome Stand Alone Forms Stand Alone Forms: Work/School Release Instructions Patient Instructions: Sore Throat, DI for Pharyngitis/Tonsillopharyngitis -- Ad ult Print Language Print Language: Gambian Discharge ED Provider: Andrey Duong [facility] HPI General Stated complaint: weak, nausea, cough, sinus pressure, body aches Time Seen by Provider: 03/10/24 08:23 Related Data Previous Rx's ?Medication ?Instructions ?Recorded umeclidinium 62.5 mcg-vilanterol 1 inh inhalation DAILY upper 05/10/23 25 mcg/actuation powdr for respiratory #60 ea inhalation (Anoro Ellipta) buspirone 15 mg tablet 15 mg PO BID 30 days #90 tabs 05/26/23 atorvastatin 10 mg tablet 10 mg PO DAILY 90 days #90 tabs 08/04/23 bisoprolol fumarate 5 mg tablet 5 mg PO DAILY #90 tabs 08/04/23 lisinopril 5 mg tablet 5 mg PO DAILY 90 days #90 tabs 08/04/23 loratadine 10 mg tablet (Allergy See Rx Instructions .Route 12/10/23 Relief (loratadine)) .COMPLEX #90 tabs azithromycin 250 mg tablet 250 mg PO UD DOSE PK #6 tabs 03/10/24 (Zithromax) yyornpeyfzxlovb-fzivilxfpyfnszo-YA 5 ml PO Q6H PRN Cough #240 mL 03/10/24 2 mg-30 mg-10 mg/5 mL oral syrup (Bromfed DM) methylprednisolone 4 mg tablets in 4 mg PO DIRECTED 6 days #21 tabs 03/10/24 a dose pack Allergies Allergy/AdvReac Type Severity Reaction Status Date / Time Penicillins (PENICILLINS) Allergy Unknown Verified 08/04/23 08:28 [facility] Disclaimer: The information contained in this section may have been updated after the patient was seen, as this information can be updated by other users. Medical History (Updated 03/10/24 @ 09:01 by Andrey Duong APRN) Cough in adult patient Influenza A Acute viral syndrome Dental abscess Sinusitis Otitis media Bronchitis Sinusitis Laceration of forearm Hematoma Exposure to COVID-19 virus GM (obstructive sleep apnea) Family History Other Cancer Coronary artery disease Diabetes Heart attack Hyperlipidemia Hypertension Social History Smoking Status: Never smoker second hand exposure: Yes alcohol intake: current alcohol intake frequency: 3 or more drinks per day substance use type: denies use current occupational status: employed Travel in the last 8 weeks: None household members: family housing: house marital status: current occupation: structural welder current occupational exposures/hazards: Yes caffeine: Yes Have you lived/traveled outside [place] in past 30 days?: No Contact w/someone who lives/traveled outside [place] past 30 days?: No Exposure to someone with infectious disease in past 14 days?: No Do you have a fever (greater than 100.4 F or 38 C)?: No Have you tested positive for COVID-19: No Exposed to someone with COVID-19 in past 14 days?: No Do you have a sore throat?: No Do you have a cough?: Yes Do you have any weakness?: Yes Do you have any diarrhea?: No Are you experiencing any unusual bleeding?: No Do you have any muscle aches/pain?: Yes Do you have any abdominal pain?: No Are you experiencing loss of taste or smell?: No ROS Obtained: Yes All systems reviewed & no additional complaints except as documented Constitutional Constitutional: Reports chills and Reports fever(s) Eyes Eyes: Denies eye discharge ENT Ears, Nose, Mouth, and Throat: Reports as per HPI Cardiovascular Cardiovascular: Denies chest pain Respiratory Respiratory: Denies chest congestion and Reports cough Gastrointestinal Gastrointestingal: Reports nausea; Denies abdominal pain, constipation, cramping, diarrhea or vomiting Musculoskeletal Musculoskeletal: Denies arthralgias Integumentary/Breasts Skin/Breast: Denies rash Neurologic Neurologic: Denies paresthesias Physical Exam General General appearance: alert and in no apparent distress Head Head exam: atraumatic, normocephalic and normal inspection Eye Eye exam: Present normal appearance, PERRL and EOMI ENT ENT exam: Present mucous membranes moist and normal external ear exam Expanded ENT Exam TM/Canal exam: Bilateral TM: erythema and bulging Nose exam: Absent sinus tenderness Mouth exam: Present normal external inspection; Absent drooling Teeth exam: Present normal inspection Throat exam: Present tonsillar erythema, tonsillomegaly and tonsillar exudate Neck Neck exam: Present normal inspection, full ROM and trachea midline; Absent tenderness, meningismus or lymphadenopathy Chest Chest inspection: Present normal inspection and symmetric chest wall rise; Absent tenderness Respiratory Respiratory exam: Present normal lung sounds bilaterally; Absent respiratory distress, wheezes, stridor or accessory muscle use Cardiovascular Cardiovascular exam: Present regular rate and normal rhythm; Absent systolic murmur or diastolic murmur Abdominal Exam Abdominal exam: Present soft and normal bowel sounds; Absent distention, tenderness, guarding, rebound or rigidity Extremities Exam Extremities exam: Present normal inspection and normal capillary refill; Absent calf tenderness Back Exam Back exam: Present normal inspection and full ROM; Absent tenderness, CVA tenderness (R) or CVA tenderness (L) Neurological Exam Neurological exam: Present alert, oriented X3 and CN II-XII intact Psychiatric Psychiatric exam: Present normal affect and normal mood Skin Skin exam: Present warm, dry, intact and normal color Medical Decision Making Medical Records Medical records reviewed: No I reviewed the patient's medical records. Screening: Per USPSTF and CDC recommendations, given the prevalence of disease in our region, it is our hospital?s policy to screen for HIV and viral Hepatitis for all patients aged 18 and over and those with ongoing risk factors. Jaspreet Inquiry Pt receiving controlled substance: No
[2024-03-10 08:34] VITALS: BP 134/80; PULSE 90; RESP 20; TEMP 37; O2SAT 99; BMI 39.1
[2024-03-10 08:54] LABS: UTC Strep Screen (Rapid) Negative (Negative)
[2024-03-10 08:54] LABS: UTC Influenza A Antigen Negative (Negative); UTC Influenza B Antigen Negative (Negative)
[2024-03-10 09:04] VITALS: BP 134/80; PULSE 90; RESP 20; TEMP 37
== END 2024-03-10 09:09 | disposition home or self-care (01) ==
PROVIDERS: Emergency Provider Nurse Practitioner Family; PCP Internal Medicine
DX: B34.9 Viral infection, unspecified (principal); J02.9 Acute pharyngitis, unspecified; R50.9 Fever, unspecified; R53.1 Weakness; R05.9 Cough, unspecified; R11.0 Nausea; M79.10 Myalgia, unspecified site
CPT/HCPCS: 87804; 87880; 99212; G0381

== ENCOUNTER 2024-04-27 20:41 | Outpatient (CLI) | payer BC, SELFPAY ==
[2024-04-28 05:38] LABS: Microalbumin < 6.000 mg/L (0-16.7)
== END 2024-04-27 23:59 | disposition home or self-care (01) ==
LOC: LAB.DROPOF 20:42
PROVIDERS: PCP Internal Medicine; Visit Provider Internal Medicine
DX: E78.2 Mixed hyperlipidemia (principal)
CPT/HCPCS: 82043

== ENCOUNTER 2024-10-20 13:49 | Outpatient (CLI) | payer BC, SELFPAY ==
[2024-10-20 19:46] LABS: Hematocrit 42.1 % (42.0-52.0); Hemoglobin 14.1 g/dL (14.1-18.0); Immature Granulocytes % 0.1 %; Mean Corpuscular HGB Conc 33.5 g/dL (31.8-35.4); Mean Corpuscular Hemoglobin 30.8 pg (27.0-31.2); Mean Corpuscular Volume 91.9 fl (80-94); Nucleated Red Blood Cells % 0 %; Platelet Count 287 K/mm3 (142-424); Red Blood Count 4.58 M/mm3 (4.60-6.20); Red Cell Distribution Width-SD 43.1 fL; White Blood Count 7.0 K/mm3 (4.8-10.8)
[2024-10-20 20:05] LABS: Albumin Level 4.8 g/dl (3.5-5.0); Chloride 103 mmol/L (98-107); Potassium 4.1 mmoL/L (3.5-5.1); Sodium 134 mmol/L (136-145)
[2024-10-20 20:08] LABS: Alanine Aminotransferase 73 U/L (12-78); Albumin/Globulin Ratio 1.6 (1.1-1.8); Alkaline Phosphatase 97 U/L (38-126); Anion Gap 11.1 mEq/L (5-15); Aspartate Amino Transferase 56 U/L (17-59); Bilirubin,Total 0.6 mg/dl (0.2-1.3); Blood Urea Nitrogen 15 mg/dl (9-20); Carbon Dioxide 24 mmol/L (22.0-30.0); Cholesterol 162 mg/dl (140-200); Creatinine,Serum 1.10 mg/dl (0.66-1.25); Estimated Glomerular Filt Rate 77 ml/min (>60); GFR (African American) 93 ML/MIN (>60); Globulin 3.0 g/dL (1.3-3.2); Total Protein,Serum 7.8 g/dl (6.3-8.2)
[2024-10-20 20:09] LABS: Calcium 9.3 mg/dl (8.4-10.2); Glucose 120 mg/dl (74-100); HDL Cholesterol 43 mg/dl (40-60)
[2024-10-20 20:23] LABS: Triglycerides 440 mg/dl (30-150)
[2024-10-20 20:38] LABS: Thyroid Stimulating Hormone 1.22 uIU/mL (0.465-4.68)
[2024-10-20 21:14] LABS: Hemoglobin A1C 5.3 % (4.0-6.0)
--- OUTSIDE RECORDS SUMMARY | 2024-10-23 13:52 | XMS_ITS | Clinical Summary ---
Author Organization Healthcare Address [address] [place] [address] Care Team Providers Care Datacap Developer Name Role Phone Unavailable Primary Care Provider Unavailabl e Social History Tobacco Use Types Packs/Day Years Used Date Smoking Tobacco: Never Assessed Sex and Gender Information Value Date Recorded Sex Assigned at Not on file Legal Sex Male 2:27 PM EDT Gender Identity Not on file Sexual Orientation Not on file Plan of Treatment Health Maintenance Due Date Last Done Comments [facility]-Depression Screening 1990 [facility]-/Child/Adol SDOH Screenings 1990 [facility]-Varicella Vaccines (1 of 2 - 13+ 2-dose series) 2003 HPV Vaccines (1 - Male 3-dose series) 2005 [facility]- SDOH Screenings 02/12/2008 [facility]-Adult SDOH Screenings 02/12/2008 [id number] Vaccine (1 - season) 2023 [facility]-Influenza Vaccine (#1) 2024 12/31/2016 [facility]-DTaP,Tdap,and Td Vaccines (3 - Td or Tdap) 07/17/2031 07/16/2021, 06/27/2002 [facility]-Zoster Vaccines (1 of 2) 02/12/2040 [facility]-Hepatitis B Vaccines Completed 003, 10/31/2001, 09/30/2001 [facility]-HIB Vaccines Aged Out No longer e ligible based on patient's age to complete this topic [facility]-Hepatitis A Vaccines Aged Out No longer eligible based on patient's age to complete this topic [facility]-IPV Vaccines Aged Out No longer e ligible based on patient's age to complete this topic [facility]-Pneumococcal Vaccine: Pediatrics (0 to 5 Years) and At-Risk Patients (6 to 49 Years) Aged Out No longer eligible b ased on patient's age to complete this topic [facility]-Rotavirus Vaccines Aged Out No lo nger eligible based on patient's age to complete this topic
== END 2024-10-20 23:59 | disposition home or self-care (01) ==
LOC: LAB.DROPOF 10-23 13:49
PROVIDERS: PCP Family Medicine; Visit Provider Family Medicine
DX: R73.09 Other abnormal glucose (principal); I10 Essential (primary) hypertension
CPT/HCPCS: 80053; 80061; 83036; 84443; 85025